=== PATIENT | male | born 1990 | race Two or more races ===

== ENCOUNTER 2021-12-09 09:16 | Emergency (ER) | payer OTHER, SELFPAY ==
[2021-12-09 09:45] VITALS: BP 131/77; PULSE 77; RESP 20; TEMP 36.4; O2SAT 98; BMI 48.5
[2021-12-09 10:19] LABS: MANUAL DIFF FLAG NO
[2021-12-09 10:23] LABS: Basophils Percent Auto 0.5 % (0-2); Eosinophils Absolute Auto 0.1 X10*3/uL (0.0-0.4); Eosinophils Percent Auto 1.3 % (0-4); Hematocrit 42.6 % (42.0-52.0); Imm Gran Abs Auto 0.03 X10*3/uL (0.00-0.03); Imm Gran Pct Auto 0.4 % (0.0-0.4); Lymphocytes Absolute Auto 1.7 X10*3/uL (1.2-4.9); Lymphocytes Percent Auto 20.2 % (20-40); Mean Corpuscular HGB Conc 32.9 g/dl (31.0-36.0); Mean Corpuscular Hemoglobin 28.7 pg (27.0-33.0); Mean Corpuscular Volume 87.5 fL (80.0-98.0); Mean Platelet Volume 11.1 fL (9.4-12.4); Monocytes Absolute Auto 0.7 X10*3/uL (0.1-1.2); Monocytes Percent Auto 7.9 % (2-11); Neutrophils Absolute Auto 5.8 x10*3/uL (2.0-8.3); Neutrophils Percent Auto 69.7 % (45-73); Platelet Count 190 X10*3/uL (160-400); Red Blood Count 4.87 X10*6/uL (4.60-5.80); Red Cell Distribution Width 12.2 % (11.0-16.0); White Blood Count 8.4 X10*3/uL (4.8-10.8)
[2021-12-09 10:42] LABS: Anion Gap 14 (12-20); Blood Urea Nitrogen 11 mg/dL (9-16); Calcium 9.5 mg/dL (8.4-10.2); Carbon Dioxide 25 mmol/L (22-29); Chloride 106 mmol/L (96-108); Creatinine Clr Calc Pharmacy 171.7; Estimated Glomerular Filt Rate > 60; Glucose Random 107 mg/dL (60-115); Potassium 3.7 mmol/L (3.3-5.1); Sodium 141 mmol/L (135-145)
== END 2021-12-09 14:59 | disposition left against medical advice (07) ==
PROVIDERS: Emergency Provider Emergency Medicine
DX: M54.50 Low back pain, unspecified (principal); K57.92 Diverticulitis of intestine, part unspecified, without perforation or abscess without bleeding; Z79.899 Other long term (current) drug therapy
CPT/HCPCS: 36415; 80048; 85025; 99281; 99283

== ENCOUNTER 2025-07-04 09:25 | Outpatient (AMB) | payer OTHER, SELFPAY ==
--- NOTE | 2025-07-04 09:27 | A.OFFVIS_ITS ---
Intake Visit Reasons: 4M MIGRAINE Allergies ibuprofen Allergy (Unknown, Verified 07/04/25 09:31) Unknown Medication List - Last Reconciled 07/04/25 by Lennie Pierre CNP amitriptyline 25 mg PO BEDTIME skzifxfjnn-jagtgtvjtdouj-vyfd 50-325-40 mg 1 tab PO Q6H PRN tirzepatide (Mounjaro) 5 mg subcut QWEEK topiramate 50 mg PO DAILY HPI Comments Details: He was doing okay. Headaches were better with medication. No medication side effects. If he missed medication for a few days, headaches would start back up. He could go some weeks without any headaches. Butalbital as needed helped with bad headaches, using few times a month. Sleep was okay with CPAP. In early 08/2024, he had 3 bad headaches lasting several days. He had new onset of headache since 06/21/2023. Over 10 years ago, he used to have some migraines which resolved spontaneously. No infection, COVID, or head trauma. Has pain in his neck to the occipital region, sometimes on the eyes, and right occipital area almost daily. About once a week, the pain is just mild with a pressure, but the other 6 days, he has bad headache. He says he has been to the ER [address] scan of the head and MRI of the neck were apparently normal, no records available for review. He has tried diclofenac, sumatriptan with side effects, and was on nortriptyline 25-50mg at bedtime which did not help. Has trouble initiating and maintaining sleep. [facility] Medical History (Updated 07/04/25 @ 09:29 by Lennie Pierre CNP) Migraines Asthma Hypertension Diverticulitis Review of Systems Const Denies chills, Denies daytime sleepiness, Reports difficulty sleeping, Denies fatigue, Denies fever(s), Denies frequent falls, Reports headache(s), Denies increased appetite, Denies poor appetite, Reports snoring, Denies weakness, Denies weight gain and Denies weight loss Eyes Denies loss of vision ENT Denies vertigo, Denies dizziness, Reports headache(s) and Denies neck pain Card Denies chest pain at rest, Denies chest pain with activity, Denies syncope, Denies leg edema, Denies palpitations, Denies dyspnea and Denies dyspnea on exertion Resp Denies cough, Denies dyspnea, Denies dyspnea on exertion and Reports snoring GI Denies abdominal pain, Denies constipation, Denies heartburn, Denies diarrhea and Denies nausea Denies urinary frequency, Denies urinary incontinence and Denies urinary urgency Musc Denies abnormal gait, Denies back pain, Denies myalgias, Denies arthralgias, Denies neck pain, Reports numbness and Reports tingling Neuro Denies abnormal gait, Denies vertigo, Denies dizziness, Denies syncope, Denies frequent falls, Reports headache(s), Denies lack of coordination, Denies loss of vision, Denies memory loss, Reports numbness, Denies Other visual disturbances, Reports restless legs, Denies seizure-like activity, Reports tingling, Denies paresthesias, Denies tremor(s) and Denies weakness Psych Denies anxiety, Denies depression, Denies auditory hallucinations, Denies memory loss and Denies visual hallucinations Endo Denies fatigue and Denies palpitations Physical Exam Const Other: General Appearance:? normal, in no acute distress. Heart:? S1, S2 normal, no murmurs. Lungs:? clear anteriorly and posteriorly. Musculoskeletal:? normal. Extremities:? no edema. Psych:? alert, oriented, cognitive function intact, cooperative with exam. Neuro Other: Abnormal Neurological Findings:?none.? Mental Status: alert and oriented X 3. Normal attention, orientation, memory, and affect. Cranial Nerves: Pupils are equal, round, and reactive to light. External ocular muscles are intact. Visual davey are full, no ptosis. Face is symmetrical, no facial weakness or droop. Facial sensations are normal. Tongue protrudes in midline. Palate elevates symmetrically. Shoulder shrugging is normal Motor Examination: Normal muscle tone, bulk and strength. No atrophy or fasciculations. No drift of the extended upper extremities. DTR 2+. Plantars are flexor. Sensory Exam: Normal light touch, temperature, pinprick, vibration, and joint- position sensations. Rhomberg sign is absent. Coordination: No ataxia. No titubation. Gait Exam: Within normal limits. Cerebellar Signs: Juxvjh-lw-qbhw is okay. Extrapyramidal System: No tremor, rigidity with normal facial expressions. No bradykinesia. No bradyphrenia. Normal arm swing and posture. No propulsion or retropulsion. Speech: Normal. Assessment & Plan Assessment & Plan (1) Migraines: Code(s): G43.909 - Migraine, unspecified, not intractable, without status migrainosus Category: Medical Qualifiers: Migraine type: unspecified Status migrainosus presence: without status migrainosus Intractability: not intractable Qualified Code(s): G43.909 - Migra ine, unspecified, not intractable, without status migrainosus Plan: Continue topiramate 50mg 1 tablet at bedtime. Continue zynetmrygq-KOOS-vwad 50-325-40mg 1 tablet as needed q6h for headache #20 for 30 days. (2) Tension headache: Code(s): G44.209 - Tension-type headache, unspecified, not intractable Category: Medical Plan: Continue amitriptyline 25mg 1 tablet at bedtime. Follow up in 6 months or sooner as needed. Plan Meds tried: diclofenac, sumatriptan with side effects, nortriptyline Medications: New topiramate 50 mg PO BEDTIME 90 tabs 1RF 90 days amitriptyline 25 mg PO BEDTIME 90 tabs 1RF 90 days Coding Level of Care Code Est Pt Level 4 (99852) Diagnoses Migraine without status migrainosus, not intractable, unspecified migraine type G43.909 Migraine type: unspecified Status migrainosus presence: without status migrainosus Intractability: not intractable Tension headache G44.209
--- OUTSIDE RECORDS SUMMARY | 2025-07-04 10:48 | XMS_ITS | Clinical Summary ---
Author Organization [facility] Address [address] [place] [address] Phone Care Team Providers Care [employer] Name Role Phone Blaise Otero MD Primary Care Provider [phone] Allergies Active Allergy Reactions Criticality Noted Date Comments Ibuprofen GI intolerance 09/19/2024 09/26/24 -pt reports upset stomach, and vomiting x once in the past. Denies angioedema, denies anaphylaxis. Medications Ventolin HFA 90 mcg/actuation inhaler Inhale 2 puffs by mouth every 4 (four) hours if needed for wheezing or shortness of breath. 5 Active amitriptyline (ELAVIL) 25 mg tablet Take 1 tablet (25 mg total) by mouth at bedtime. at bedtime for 30 days 5 Active topiramate (TOPAMAX) 50 mg tablet Take 1 tablet (50 mg total) by mouth at bedtime. Active Active Problems Problem Noted Date Diagnosed Date Esophagitis 09/20/2024 Gastritis 09/20/2024 Obesity, morbid, BMI 40.0-49.9 ([facility] V24, [facility] V28) 09/20/2024 GERD (gastroesophageal reflux disease) 5 Chest pain 09/19/2024 Medical History Medical History Date Comments Diabetes mellitus ([facility] V24, [facility] V28) Asthma Headache Hypertension Hypercholesteremia ADE on CPAP Family History Medical History Relation Name Comments Diabetes Mother Heart disease Mother Relation Name Status Comments Mother Social History Tobacco Use Types Packs/Day Years Used Date Smoking Tobacco: Never Smokeless Tobacco: Never Tobacco Cessation:Counseling Given: Not Answered Alcohol Use Standard Drinks/Week Comments Not Currently 0 (1 standard drink = 0.6 oz pur e alcohol) Interpersonal Safety Answer Date Record ed Physical Abuse Unrecognized value 09/19/2024 Verbal Abuse Unrecognized value 09/19/2024 Sex and Gender Information Value Date Recorded Sex Assigned at Male 09/19/2024 3:17 PM EST Legal Sex Male 5:12 PM EST Gender Identity Male 09/19/2024 3:17 PM EST Sexual Orientation Straight 09/19/2024 3: 17 PM EST Obstetrics History Last Filed Vital Signs Vital Sign Reading Time Taken Comments Blood Pressure 170/88 01/03/2025 4:58 AM EDT Pulse 80 01/03/2025 4:58 AM EDT Temperature 37.2 C (98.9 F) 01/03/2025 4:58 AM EDT Respiratory Rate 16 01/03/2025 4:58 AM EDT Oxygen Saturation 98% 01/03/2025 4:58 AM EDT Inhaled Oxygen Concentration - - Weight 136 kg (300 lb 4.8 oz) 01/03/2025 2:07 AM EDT Height 170.2 cm (5' 7 ) 01/03/2025 2:07 AM EDT Body Mass Index 47.03 01/03/2025 2:07 AM EDT Plan of Treatment Health Maintenance Due Date Last Done Comments Diabetes: Annual Foot Exam 1998 Diabetes: Annual Retina Eye Exam 1998 Hepatitis A Vaccines (1 of 2 - Risk 2-dose series) 2007 Hepatitis B Vaccines (1 of 3 - 19+ 3-dose series) 2007 Pneumococcal Vaccine: Pediatrics (0 to 5 Years) and At-Risk Patients (6 to 49 Years) (1 of 2 - PCV) 2007 HPV Vaccines (1 - 3-dose SCDM series) 2015 HIV Screening 07/09/2022 Hepatitis C Screening 07/09/2022 Social Influencers of Health Screening 07/09/2022 Depression Screening 08/10/2024 Diabetes: Annual Urine Albumin-Creatinine Ratio (uACR) 09/20/2024 Diabetes: Blood Sugar Control Test (HGBA1C) 09/20/2024 COVID-19 Vaccine ( season) 2025 12/17/2021, 02/19/2021, 01/29/2021 Influenza Vaccine (#1) 2025 3, 06/10/2022, 06/10/2021, Additional history exists Diabetes: Annual GFR (Glomerular Filtration Rate) 01/03/2026 01/03/2025, 09/25/2024, 09/20/2024, Additional history exists Hypertension/CHF/CAD Annual BMP Blood Test 01/03/2026 01/03/2025, 09/25/2024, 09/20/2024, Additional history exists Cholesterol Screening (Lipid Panel) 09/20/2029 09/20/2024 DTaP,Tdap,and Td Vaccines (2 - Td or Tdap) 06/10/2032 06/10/2022 RSV Immunization Adult Patients (1 - 1-dose 75+ series) 2063 HIB Vaccines Aged Out No longer eligi ble based on patient's age to complete this topic IPV Vaccines Aged Out No longer eligi ble based on patient's age to complete this topic MMR Vaccines Aged Out No longer eligi ble based on patient's age to complete this topic Meningococcal ACWY Vaccine Aged Out N o longer eligible based on patient's age to complete this topic Meningococcal B Vaccine Aged Out No l onger eligible based on patient's age to complete this topic RSV Immunization Patients Under 20 months Aged Out No longer eligible based on patient's age to complete this topic Varicella Vaccines Aged Out No longer eligible based on patient's age to complete this topic Procedures Procedure Name Priority Date/Time Associated Diagnosis Comments COMPREHENSIVE METABOLIC PANEL STAT 01/03/2025 2:02 AM EDT LIPID PANEL WITH REFLEX TO DIRECT LDL Routine 09/20/2024 5:32 AM EST from Last 3 Months or Most Recently Relevant to Health Maintenance Results * (ABNORMAL) Comprehensive metabolic panel (01/03/2025 2:02 AM EDT) Sodium 140 133 - 145 mmol/L LAB CHEMISTRY METHOD 01/03/2025 3:21 AM [facility] Potassium 3.3(L) 3.5 - 5.5 mmol/L LAB CHEMISTRY METHOD 01/03/2025 3:21 AM [facility] Chloride 105 96 - 110 mmol/L LAB CHEMISTRY METHOD 01/03/2025 3:21 AM [facility] CO2 28 21 - 32 mmol/L LAB CHEMISTRY METHOD 01/03/2025 3:21 AM [facility] Anion Gap 7 3 - 11 LAB CHEMISTRY METHOD 01/03/2025 3:21 AM [facility] Glucose 126(H) 70 - 100 mg/dL LAB CHEMISTRY METHOD 01/03/2025 3:21 AM [facility] BUN 9 5 - 25 mg/dL LAB CHEMISTRY METHOD 01/03/2025 3:21 AM [facility] Creatinine 0.86 0.70 - 1.30 mg/dL LAB CHEMISTRY METHOD 01/03/2025 3:21 AM [facility] eGFR 115 >=60 mL/min/1. 73m2 LAB CHEMISTRY METHOD 01/03/2025 3:21 AM [facility] Comment:Calculation based on the Chronic Kidney Disease Epidemiology Collaboration (CKD-EPI) equation refit without adjustment for race. BUN/Creatinine Ratio 10.5 LAB CHEMISTRY METHOD 01/03/2025 3:21 AM [facility] Calcium 9.0 8.5 - 10.5 mg/dL LAB CHEMISTRY METHOD 01/03/2025 3:21 AM [facility] AST (SGOT) 18 10 - 42 unit/L LAB CHEMISTRY METHOD 01/03/2025 3:21 AM [facility] ALT (SGPT) 37 10 - 60 unit/L LAB CHEMISTRY METHOD 01/03/2025 3:21 AM [facility] Alkaline Phosphatase 89 42 - 121 unit/L LAB CHEMISTRY METHOD 01/03/2025 3:21 AM EDT [facility] Total Protein 7.0 6.0 - 8.0 g/dL LAB CHEMISTRY METHOD 01/03/2025 3:21 AM EDT [facility] Albumin 3.8 3.2 - 5.0 g/dL LAB CHEMISTRY METHOD 01/03/2025 3:21 AM T [facility] Total Bilirubin 0.3 0.0 - 1.4 mg/dL LAB CHEMISTRY METHOD 01/03/2025 3:21 AM EDT [facility] Blood Venous blood specimen / Unknown Venipuncture / Unknown 01/03/2025 2:02 AM EDT 01/03/2025 2:55 AM EDT us Pancho Kulkarni MD LAB BLOOD ORDERABLES Final Resu lt [facility] [address] [place] [address], [place] [phone] * (ABNORMAL) Lipid panel with reflex to direct LDL (09/20/2024 5:32 AM EST) Cholesterol 166 0 - 200 mg/dL LAB CHEMISTRY METHOD 09/20/2024 6:[address] [facility] Triglycerides 200(H) 0 - 150 mg/dL LAB CHEMISTRY METHOD 09/20/2024 6:[address] [facility] HDL 40 >=40 mg/dL LAB CHEMISTRY METHOD 09/20/2024 6:[address] [facility] LDL Calculated 86 0 - 100 mg/dL LAB CHEMISTRY METHOD 09/20/2024 6:[address] [facility] VLDL Cholesterol Sinan 40 mg/dL LAB CHEMISTRY METHOD 09/20/2024 6:[address] [facility] Non HDL Chol. (LDL+VLDL) 126 <145 mg/dL LAB CHEMISTRY METHOD 09/20/2024 6:[address] [facility] Chol/HDL Ratio 4.2 0.0 - 4.4 LAB CHEMISTRY METHOD 09/20/2024 6:08 AM EST [facility] Blood Venous blood specimen / Unknown Venipuncture / Unknown 09/20/2024 5:32 AM EST 09/20/2024 5:39 AM EST us Jolanta [facility] LAB BLOOD ORDERABLES Final Resul t [facility] [address] [place] [address], [place] [phone] from Last 3 Months or Most Recently Relevant to Health Maintenance Insurance [employer] [employer] Advance Directives Documents on File Type Date Recorded Patient Director It Expl anation Advance Directives and Livin g Will 09/21/2024 9:15 AM PROXY * Full Code - Default (Latest Code Status on File) Date Activated Date Inactivated Comments 09/19/2024 5:12 PM 09/20/2024 8:36 PM This is orde r is used when code status has not been discussed with the patient, or code status is otherwise unknown/unconfirmed To update the patient's code status, place a code status order. Do not modify or discontinue any currently active code status orders. Care Teams [employer] Relationship Specialty Start Date End Date Blaise Otero MD PCP - General 01/12/13
== END 2025-07-04 09:41 | disposition home or self-care (01) ==
LOC: HO.HSM 09:26
PROVIDERS: PCP Internal Medicine; Referring Provider Internal Medicine; Visit Provider Registered Nurse
DX: G43.909 Migraine, unspecified, not intractable, without status migrainosus (principal); G44.209 Tension-type headache, unspecified, not intractable
CPT/HCPCS: 99214

== ENCOUNTER → 2025-07-04 09:25 | Outpatient (BNVA) | payer OTHER, SELFPAY | PROVIDERS: PCP Internal Medicine; Referring Provider Internal Medicine; Visit Provider Registered Nurse | DX: G43.909 Migraine, unspecified, not intractable, without status migrainosus (principal); G44.209 Tension-type headache, unspecified, not intractable | CPT/HCPCS: 99212 ==